=== PATIENT | female | born 1975 ===

== ENCOUNTER 2016-11-11 01:40 | Emergency (ER) | payer MEDICAID ==
--- NOTE | 2016-11-11 02:59 | ED PDOC ---
Arrival/HPI - General Chief Complaint: Back Pain Time Seen by Provider: 11/11/16 02:26 Historian: Patient - History of Present Illness Narrative History of Present Illness (Text): 11/11/16 02:30 Kaylee Gonzalez is a 40 year old female, whose past medical history includes an appendectomy, who presents to the emergency department complaining of 1 day duration of nausea, left sided back pain which radiates to the front, urinary frequency with blood, and a UTI. Patient also notes that she experienced 2 days of vomiting and chills but no fever. Patient denies any history of kidney stones , diarrhea, constipation, or any other complaints at this time. Time/Duration: 24 hours Symptom Onset: Gradual Symptom Course: Unchanged Severity Level: Mild Activities at Onset: Light Context: Home Past Medical History - Provider Review Nursing Documentation Reviewed: Yes - Travel History Have you recently traveled outside [place] w/in the past 3 mons?: No - Past Medical History Past Medical History: Non-Contributing - Psychiatric Hx Substance Use: No - Surgical History Hx Appendectomy: Yes Family/Social History - Physician Review Nursing Documentation Reviewed: Yes Family/Social History: No Known Family HX Smoking Status: Never Smoked Hx Alcohol Use: No Hx Substance Use: No Allergies/Home Meds Allergies/Adverse Reactions: Allergies No Known Allergies Allergy (Verified 11/11/16 02:04) Review of Systems - Physician Review All systems were reviewed & negative as marked: Yes - Review of Systems Constitutional: Other (chills). absent: Fevers, Night Sweats Eyes: absent: Vision Changes ENT: absent: Hearing Changes Respiratory: absent: SOB Cardiovascular: absent: Chest Pain Gastrointestinal: Nausea, Vomiting. absent: Constipation, Diarrhea Genitourinary Female: absent: Dysuria Musculoskeletal: Back Pain (Left sided back pain that radiates to the front) Skin: absent: Rash, Pruritis Neurological: absent: Headache Endocrine: absent: Diaphoresis Hemo/Lymphatic: absent: Adenopathy Physical Exam Vital Signs Reviewed: Yes Vital Signs Temp Pulse Resp BP Pulse Ox 11/11/16 02:05 98.5 F 96 H 18 139/97 H 97 Temperature: Afebrile Blood Pressure: Hypertensive Pulse: Tachycardic Respiratory Rate: Normal Appearance: Positive for: Well-Appearing, Non-Toxic, Comfortable Mental Status: Positive for: Alert and Oriented X 3 - Systems Exam Head: Present: Atraumatic, Normocephalic Pupils: Present: PERRL Extroacular Muscles: Present: EOMI Conjunctiva: Present: Normal Mouth: Present: Moist Mucous Membranes Neck: Present: Normal Range of Motion Respiratory/Chest: Present: Clear to Auscultation, Good Air Exchange. No: Respiratory Distress, Accessory Muscle Use Cardiovascular: Present: Regular Rate and Rhythm, Normal S1, S2. No: Murmurs Abdomen: Present: Other (LLQ pain) Back: Present: Other (Left flank pain) Upper Extremity: Present: Normal Inspection. No: Cyanosis, Edema Lower Extremity: Present: Normal Inspection. No: Edema Neurological: Present: GCS=15, CN II-XII Intact, Speech Normal Skin: Present: Warm, Dry, Normal Color. No: Rashes Psychiatric: Present: Alert, Oriented x 3, Normal Insight, Normal Concentration Medical Decision Making ED Course and Treatment: 11/11/16 03:00 Impression: 40 year old female complaining of 1 day duration of nausea, left sided back pain which radiates to the front, urinary frequency with blood, and a UTI. Differential Diagnosis included but are not limited to: Plan: -- Abdomen and Pelvis w/o contrast -- Urinalysis and HCG -- Labs -- Toradol, Zofran, and IV fluids -- Reassess and disposition Progress Notes: 11/11/16 06:05 40-year-old female with urinary symptoms left flank pain. Concern for kidney stone versus UTI. Urine is minimally dirty however due to her urinary symptoms as well as presence of bacteria and urinary sytem fullness I will treat for urinary tract infection based on suspicion and white count. No signs of midline tenderness is just epidural abscess. She is afebrile at this time. concerned for pyelonephritis and has not significantly dirty 11/11/16 06:10 Reassessment Condition: Re-examined, Improved - Lab Interpretations Lab Results: 11/11/16 03:15 11/11/16 03:15 Lab Results 11/11/16 03:35: Urine HCG, Qual Negative 11/11/16 03:35: Urine Color Yellow, Urine Appearance Sl cloudy, Urine pH 6.0, Ur Specific [place] 1.010, Urine Protein Trace H, Urine Glucose (UA) Negative, Urine Ketones Negative, Urine Blood Small H, Urine Nitrate Negative, Urine Bilirubin Negative, Urine Urobilinogen 0.2, Ur Leukocyte Esterase Negative, Urine RBC 0 - 2, Urine WBC 1 - 3, Ur Epithelial Cells 1 - 3, Urine Bacteria Rare 11/11/16 03:15: Sodium 139, Potassium 3.8, Chloride 102, Carbon Dioxide 25, Anion Gap 16, BUN 9, Creatinine 0.6 L, Est GFR ( Amer) > 60, Est GFR (Non -Af Amer) > 60, Random Glucose 121 H, Calcium 9.6, Total Bilirubin 0.6, AST 37 H , ALT 35, Alkaline Phosphatase 125, Total Protein 8.6 H, Albumin 4.5, Globulin 4.0, Albumin/Globulin Ratio 1.1 11/11/16 03:15: WBC 17.4 H, RBC 4.85, Hgb 14.6, Hct 41.9, MCV 86.4, MCH 30.1, MCHC 34.8, RDW 13.5, Plt Count 333, MPV 9.7, Gran % 81.6 H, Lymph % (Auto) 11.0 L, [place] % (Auto) 6.9 H, Eos % (Auto) 0.3 L, Baso % (Auto) 0.2, Gran # 14.20 H, Lymph # 1.9, [place] # 1.2 H, Eos # 0.1, Baso # 0.04 I have reviewed the lab results: Yes Interpretation: Abnormal lab values (leukocytosis, +bacteuria) - RAD Interpretation Radiology Orders: 11/11/16 02:46 ABD & PELVIS W/O PO OR IV CONT [CT] Stat - Medication Orders Current Medication Orders: Discontinued Medications Cefpodoxime Proxetil (Vantin) 100 mg PO ONCE ONE PRN Reason: Protocol Stop: 11/11/16 05:37 Sodium Chloride (Sodium Chloride 0.9%) 1,000 mls @ 999 mls/hr IV .Q1H1M STA Stop: 11/11/16 03:47 Last Admin: 11/11/16 03:19 Dose: 999 mls/hr eMAR Start Stop Document 11/11/16 03:19 EKEOO (Rec: 11/11/16 03:19 [email or web address] [id number]) Intravenous Solution Start Date 11/11/16 Start Time 03:19 Ketorolac Tromethamine (Toradol) 30 mg IVP STAT STA Stop: 11/11/16 02:48 Last Admin: 11/11/16 03:19 Dose: 30 mg MAR Pain Assessment Document 11/11/16 03:19 EKEOO (Rec: 11/11/16 03:20 EKEOO [id number]) Pain Reassessment Is this a pain reassessment? No Presence of Pain Presence of Pain Yes Location Left, Right or Bilateral Right Upper or Lower Upper Pain Location Body Site Abdomen Description Description Constant Pain Behavior Guarding IVP Administration Document 11/11/16 03:19 EKEOO (Rec: 11/11/16 03:20 EKEOO [id number]) Charges for Administration # of IVP Administrations 1 Ondansetron HCl (Zofran Inj) 4 mg IVP STAT STA Stop: 11/11/16 02:47 Last Admin: 11/11/16 03:20 Dose: 4 mg IVP Administration Document 11/11/16 03:20 EKEOO (Rec: 11/11/16 03:20 EKEOO [id number]) Charges for Administration # of IVP Administrations 1 - Scribe Statement The provider has reviewed the documentation as recorded by the Angela Adame Provider Scribe Attestation: All medical record entries made by the Scribe were at my direction and personally dictated by me. I have reviewed the chart and agree that the record accurately reflects my personal performance of the history, physical exam, medical decision making, and the department course for this patient. I have also personally directed, reviewed, and agree with the discharge instructions and disposition. Disposition/Present on Arrival - Present on Arrival Any Indicators Present on Arrival: No History of DVT/PE: No History of Uncontrolled Diabetes: No Urinary Catheter: No History of Decub. Ulcer: No History Surgical Site Infection Following: None - Disposition Have Diagnosis and Disposition been Completed?: Yes Diagnosis: Urinary tract infection Disposition: HOME/ ROUTINE Disposition Time: 06:07 Patient Plan: Discharge Patient Problems: Current Active Problems Problem Status Onset Urinary tract infection Acute Condition: IMPROVED Discharge Instructions (ExitCare): Urinary Tract Infection in Women (ED) Print Language: EQUATORIAL GUINEAN Additional Instructions: Your blood pressure was elevated today please make sure he follow up with her primary doctor regarding blood pressure control. Prescriptions: Cefpodoxime [Vantin] 100 mg PO BID #20 tab Ibuprofen [Motrin] 600 mg PO Q6 PRN #20 tab PRN Reason: Pain, Moderate (4-7) Referrals[place] [facility] [place] Follow up with primary Forms: [employer] (Hungarian)
[2016-11-11] MEDS: Sodium Chloride 0.9% 1,000 ML IV STA ×2 (03:19→06:13)
[2016-11-11 03:27] LABS: BASO # 0.04 K/mm3 (0.0-2.0); BASO % 0.2 % (0.0-3.0); EOS # 0.1 (0.0-0.7); EOS % 0.3 % (1.5-5.0); GRAN # 14.2 (1.4-6.5); GRAN % 81.6 % (50.0-68.0); HEMATOCRIT 41.9 % (36.0-48.0); LYMPH # 1.9 (1.2-3.4); MEAN CELL VOLUME 86.4 fl (80.0-105.0); MEAN CORPUSCULAR HEMOGLOBIN 30.1 pg (25.0-35.0); MEAN CORPUSCULAR HGB CONC 34.8 g/dl (31.0-37.0); MEAN PLATELET VOLUME 9.7 fl (7.0-11.0); MONO # 1.2 (0.1-0.6); MONO % 6.9 % (1.0-6.0); RED CELL DISTRIBUTION WIDTH 13.5 % (11.5-14.5); WHITE BLOOD COUNT 17.4 10^3/ul (4.5-11.0)
[2016-11-11 03:39] LABS: ALB/GLOB RATIO 1.1 (1.1-1.8); ALKALINE PHOSPHATASE 125 U/L (38-126); ALT/SGPT 35 U/L (7-56); AST/SGOT 37 U/L (14-36); BILIRUBIN,TOTAL 0.6 mg/dL (0.2-1.3); BLOOD UREA NITROGEN 9 mg/dL (7-21); CALCIUM 9.6 mg/dL (8.4-10.5); CARBON DIOXIDE 25 mmol/L (21-33); CHLORIDE 102 mmol/L (98-107); GFR AFRICAN-AMERICAN > 60; GLUCOSE,RANDOM 121 mg/dL (70-110); POTASSIUM 3.8 mmol/L (3.6-5.0); SODIUM 139 mmol/L (132-148); TOTAL PROTEIN 8.6 g/dL (5.8-8.3)
[2016-11-11 04:03] LABS: URINE BILIRUBIN NEGATIVE (NEGATIVE); URINE BLOOD SMALL (NEGATIVE); URINE GLUCOSE (UA) NEGATIVE (NEGATIVE); URINE KETONE NEGATIVE (NEGATIVE); URINE LEUKOCYTE ESTERASE NEGATIVE Leu/uL (NEGATIVE); URINE PROTEIN TRACE mg/dL (<30 mg/dL); URINE UROBILINOGEN 0.2 E.U./dL (<1 E.U./dL)
[2016-11-11 04:30] LABS: URINE APPEARANCE SL CLOUDY (CLEAR); URINE COLOR YELLOW (YELLOW)
[2016-11-11 04:34] LABS: URINE RBC 0 - 2 /hpf (0-2)
[2016-11-11 04:35] LABS: URINE BACTERIA RARE (NEG)
--- NOTE | 2016-11-11 04:49 | CT ---
EXAM: CT Abdomen and Pelvis Without Intravenous Contrast CLINICAL HISTORY: 40 years old, female; Pain; Abdominal pain; Flank; Left lower quadrant (llq); Additional info: Llq pain r/out stone TECHNIQUE: Axial computed tomography images of the abdomen and pelvis without intravenous contrast. All CT scans at this facility use one or more dose reduction techniques, viz.: automated exposure control; ma/kV adjustment per patient size (including targeted exams where dose is matched to indication; i.e. head); or iterative reconstruction technique. Coronal and sagittal reformatted images were created and reviewed. COMPARISON: No relevant prior studies available. FINDINGS: Lower thorax: There is minimal bibasilar atelectasis. ABDOMEN: Liver: There is a diffuse decrease in hepatic parenchymal density, consistent with fatty infiltration. There are no focal liver lesions present. Gallbladder and bile ducts: The gallbladder is normal. No calcified stones. No ductal dilation. Pancreas: The pancreas is normal. No ductal dilation. Spleen: The spleen is normal. Adrenals: The adrenal glands are normal. Kidneys and ureters: There is mild fullness of both renal collecting systems and both ureters, without obstructing calculi found. Please correlate clinically and if indicated followup can be obtained. Stomach and bowel: The stomach is normal. There is mild colonic constipation. There is no evidence of intestinal obstruction. No mucosal thickening. Appendix: There has been an appendectomy. PELVIS: Bladder: The bladder is normal. No stones. Reproductive: The uterus is normal. ABDOMEN and PELVIS: Intraperitoneal space: There is no evidence of free intraperitoneal fluid. There is no free intraperitoneal air. Bones/joints: There are mild degenerative changes present. There is mild diffuse osteopenia. No acute fracture. No dislocation. Soft tissues: Unremarkable. Vasculature: The aorta is normal. No abdominal aortic aneurysm. Lymph nodes: There is no evidence of lymphadenopathy. IMPRESSION: 1. There is mild fullness of both renal collecting systems and both ureters, without obstructing calculi found. Please correlate clinically and if indicated followup can be obtained. 2. Additional incidental and/or chronic findings as described.
[2016-11-11] MEDS ORDERED: Cefpodoxime (Vantin) 100 mg Tab PO ONE (05:36)
[2016-11-11 06:24] VITALS: BP 144/71; PULSE 77; RESP 17; TEMP 97.6; O2SAT 99
== END 2016-11-11 06:26 | disposition home or self-care (01) ==
LOC: ED 01:40
DX: N39.0 Urinary tract infection, site not specified (principal)
CPT/HCPCS: 74176; 80053; 81001; 84703; 85025; 96361; 96374; 96375; 99282; J1885; J2405; J7040